=== PATIENT | female | born 1980 | race Two or more races ===

== ENCOUNTER 2020-03-14 09:01 | Emergency (ER) | payer BC ==
[~2020-03-14] VITALS: Ht 172.7 cm; Wt 80.4 kg
[2020-03-14 09:03] VITALS: BP 110/63
[2020-03-14] MEDS ORDERED: KETOROLAC 60 MG/2 ML VIAL. IM ONE (10:00)
[2020-03-14] MEDS ORDERED: DEXAMETHASONE 4 MG TABLET PO SCH (10:00)
[2020-03-14] MEDS ORDERED: diazePAM 5 MG TABLET PO ONE (10:00)
[2020-03-14] MEDS ORDERED: DEXAMETHASONE 4 MG TABLET PO ONE (11:00)
[2020-03-14] MEDS ORDERED: METH-38 PO (11:37)
[2020-03-14] MEDS ORDERED: LIDO700A21 TP (11:37)
--- NOTE | 2020-03-14 11:37 | ED.ADGEN ---
Past Medical History Past Medical History: Anxiety, Depression Past Surgical History: No Surgical History Smoking Status: Never Smoker Alcohol Use: Rarely General Adult EDM: Chief Complaint: BACK PAIN OR INJURY HPI: HPI: Patient is a 39-year-old female who presents to the emergency room complaining of right-sided back pain that radiates into her buttock and down her leg. This is been ongoing for the last 3 days. She has had similar symptoms in the past that fully resolved on their own. She has tried Tylenol at home without any relief. She also tried some Biofreeze yesterday which did help some. She denies any trauma. She denies any bowel or bladder incontinence. She does not have any fevers. She has not ever been an IV drug user. Review of Systems: Review of Systems: Complete ROS is negative unless otherwise documented in HPI Current Medications: Current Medications Medications (Trade) Dose Ordered Sig/Clark Start Time Stop Time Status Last Admin Dose Admin Dexamethasone (Decadron) 10 mg 1X ONCE 03/14/20 11:00 03/14/20 11:01 DC 03/14/20 10:51 10 MG Diazepam (Valium) 5 mg 1X ONCE 03/14/20 10:00 03/14/20 10:08 DC 03/14/20 10:34 5 MG Ketorolac Tromethamine (Toradol Im) 60 mg 1X ONCE 03/14/20 10:00 03/14/20 10:08 DC 03/14/20 10:34 60 MG Allergies: Allergies: Allergies Coded Allergies Type Severity Reaction Last Updated Verified No Known Drug Allergies 03/14/20 No Physical Exam: PE: General: Awake, alert, NAD. Well Nourished, well hydrated. Cooperative HEENT: Atraumatic, EOMI, PERRL, airway patent, moist oral mucosa Neck: Supple, trachea midline Respiratory: CTA bilaterally, normal effort, no wheezing/crackles CV: RRR, no murmur, cap refill <2 GI: Soft, nondistended, nontender, no masses MSK: No obvious deformities, tenderness with spasm along the right sided lumbar area, no midline tenderness Skin: Warm, dry, intact Neuro: A&O x3, speech NL, sensory and motor grossly intact, no focal deficits, normal gait Psych: Normal affect, normal mood, not suicidal or homicidal Current Patient Data: Labs: Laboratory Tests Test 03/14/20 10:04 POC Urine HCG, Qualitative Hcg negative (Negative) Vital Signs: Vital Signs Date Time Temp Pulse Resp B/P (MAP) Pulse Ox O2 Delivery O2 Flow Rate FiO2 03/14/20 09:03 97.3 74 16 110/63 (79) 97 Room Air 97.3 EKG: EKG: [] Heart Score: Risk Factors: Risk Factors: DM, Current or recent (<one month) smoker, HTN, HLP, family history of CAD, obesity. Risk Scores: Score 0 - 3: 2.5% MACE over next 6 weeks - Discharge Home Score 4 - 6: 20.3% MACE over next 6 weeks - Admit for Clinical Observation Score 7 - 10: 72.7% MACE over next 6 weeks - Early Invasive Strategies Radiology/Procedures: Radiology/Procedures: [] Course & Med Decision Making: Course & Med Decision Making Pertinent Labs and Imaging studies reviewed. (See chart for details) Patient is a 39-year-old f who presents to the Emergency room with non-traumatic back pain. Patient denies bowel incontinence, urinary retention, fever, numbness, weakness. On exam, patient does not have a neurologic deficits, saddle anesthesia, gait difficulty, signs of trauma, or wounds near area of pain. Patient does not have a history of cancer or prolonged steroid use. At this time, patient does not have any signs, symptoms, or risk factors of emergent causes of back pain making cauda equina, spinal abscess, transverse myelitis, fractures, and other causes of emergent back pain highly unlikely. At this time, patient does not need any further work up for their back pain and will be treated symptomatically. Patient's test results and vitals while in the ED were fully reviewed and discussed with the patient. Patient is stable and at this time does not need admission to the hospital. We have discussed strict return precautions and the importance of following up with their Primary Care Physician. Patient stated understanding and was given an opportunity to ask any questions. Patient is in agreement with plan. Andrea Disclaimer: Andrea Disclaimer: This electronic medical record was generated, in whole or in part, using a voice recognition dictation system. Departure Departure Impression: Primary Impression: Sciatica Disposition: 01 DC HOME SELF CARE/HOMELESS Condition: STABLE Referrals: NON,STAFF (PCP) Patient Instructions: Sciatica Scripts Lidocaine (Lidocaine PATCH ) 1 Each Adh..patch 1 EACH TP DAILY for FOR LOCAL PAIN for 5 Days, #5 PATCH REMOVE AFTER 12 HOURS Prov: VONNIE JOLLEY MD 03/14/20 Methocarbamol (ROBAXIN-750) 750 Mg Tablet 1 TAB PO TID PRN for MUSCLE SPASMS for 10 Days, #30 TAB 0 Refills Prov: VONNIE JOLLEY MD 03/14/20 VONNIE JOLLEY MD Mar 14, 2020 11:37
== END 2020-03-14 11:40 | disposition home or self-care (01) ==
LOC: ER 09:01
DX: M54.41 Lumbago with sciatica, right side (principal); F41.9 Anxiety disorder, unspecified; F32.9 Major depressive disorder, single episode, unspecified
CPT/HCPCS: 81025; 96372; 99283; J1885